=== PATIENT | female | born 1945 | race Caucasian/White ===

== ENCOUNTER → 2017-03-24 | Outpatient (CLI) | payer MEDICARE, OTHER | LOC: EXRD 09:31 | DX: M25.561 Pain in right knee (principal); M17.11 Unilateral primary osteoarthritis, right knee | CPT/HCPCS: 73560 ==

== ENCOUNTER → 2017-08-11 | Outpatient (CLI) | payer MEDICARE | LOC: KOH-I 15:39 | DX: M47.22 Other spondylosis with radiculopathy, cervical region (principal); M50.122 Cervical disc disorder at C5-C6 level with radiculopathy | CPT/HCPCS: 72141 ==

== ENCOUNTER 2020-12-04 14:11 | Inpatient (IN) | payer MEDICARE, OTHER ==
[~2020-12-04] VITALS: Ht 170.2 cm; Wt 81.6 kg
[~2020-12-04 14:11] MED LIST: ANORO ELLIPTA1 EACH INH; BACTROBAN CREAM15 GM TOP; CARDIZEM CD120 MG PO; CATAPRES 0.1MG0.1 MG PO; CRESTOR20 MG PO; CYANOCOBAL1000 MCG/1 INJ; CYMBALTA60 MG PO; DIGOX250 MCG PO; DILTIAZEM 24HR180 M1 PO; ELIQUIS 5 MG TAB5 MG PO; GLUCOPHAGE500 MG PO; HYDROCHLOROTHIA25 MG PO; IBUPROFEN800 MG PO; LASIX40 MG PO; LEVAQUIN750 MG PO; LISINOPRIL5 MG PO; LOPRESSOR 25 MG25 MG PO; LORCET 5-325 M1 EACH PO; MULTAQ 400 MG400 MG PO; NEURONTIN800 MG PO; PHENERGAN 25 MG25 M1 PO; PROTONIX40 MG PO; PROVENTIL HFA 61 INH INH; SPIRIVA RESPIMAT4 GM INH; VOLTAREN100 GM TP; ZESTRIL30 MG PO; ZOFRAN8 MG PO
[2020-12-04 14:45] LABS: HEMOGLOBIN 12.3 gm/dl (12.3-15.3); RED BLOOD COUNT 3.99 M/UL (4.00-5.10); WHITE BLOOD COUNT 13.2 K/UL (4.5-11.0)
[2020-12-04 15:09] LABS: BUN/CREATININE RATIO 19 (0-10)
[2020-12-04] MEDS ORDERED: PHENERGAN 25 MG25 M1 PO (23:56)
[2020-12-04] MEDS ORDERED: JANUVIA 50 MG T50 MG PO (23:58)
[2020-12-05 05:31] LABS: HEMOGLOBIN 10.7 gm/dl (12.3-15.3); WHITE BLOOD COUNT 11.7 K/UL (4.5-11.0)
[2020-12-05 05:53] LABS: RED BLOOD COUNT 3.41 M/UL (4.00-5.10)
[2020-12-06 08:51] LABS: HEMOGLOBIN 12.3 gm/dl (12.3-15.3)
[2020-12-06 08:55] LABS: RED BLOOD COUNT 3.96 M/UL (4.00-5.10)
[2020-12-07 03:04] LABS: HEMOGLOBIN 11.6 gm/dl (12.3-15.3); RED BLOOD COUNT 3.74 M/UL (4.00-5.10); WHITE BLOOD COUNT 9.3 K/UL (4.5-11.0)
[2020-12-07 03:24] LABS: BUN/CREATININE RATIO 17 (0-10)
[2020-12-08 04:04] LABS: HEMOGLOBIN 11.2 gm/dl (12.3-15.3); RED BLOOD COUNT 3.65 M/UL (4.00-5.10); WHITE BLOOD COUNT 7.8 K/UL (4.5-11.0)
[2020-12-08 04:27] LABS: BUN/CREATININE RATIO 17 (0-10)
[2020-12-10 02:21] LABS: HEMOGLOBIN 11.5 gm/dl (12.3-15.3); RED BLOOD COUNT 3.66 M/UL (4.00-5.10); WHITE BLOOD COUNT 8.2 K/UL (4.5-11.0)
[2020-12-10 02:42] LABS: BUN/CREATININE RATIO 11 (0-10)
[2020-12-11] MEDS ORDERED: LOPRESSOR 50 MG50 MG PO (14:01)
[2020-12-11] MEDS ORDERED: GABAPENTIN300 MG PO (14:01)
== END 2020-12-11 16:56 | disposition home or self-care (01) | DRG 853 ==
LOC: ER1 14:11 → M/S 17:14 → CDU 17:14 → PROG CARE 12-05 16:31 → M/S 12-08 16:41
PROVIDERS: Emergency Medicine; Orthopaedic Surgery; ADMIT Internal Medicine Infectious Disease
PROC: 0PSJ04Z Reposition Left Radius with Internal Fixation Device, Open Approach (ICD-10-PCS; principal; 2020-12-10 07:30)
DX: A41.9 Sepsis, unspecified organism (principal); G92 Toxic encephalopathy; S52.502A Unspecified fracture of the lower end of left radius, initial encounter for closed fracture; N30.00 Acute cystitis without hematuria; E87.2 Acidosis; I48.20 Chronic atrial fibrillation, unspecified; N17.9 Acute kidney failure, unspecified; I48.0 Paroxysmal atrial fibrillation; E86.0 Dehydration; I10 Essential (primary) hypertension; E11.9 Type 2 diabetes mellitus without complications; E78.5 Hyperlipidemia, unspecified; Z20.822 Contact with and (suspected) exposure to COVID-19; K74.60 Unspecified cirrhosis of liver; G89.4 Chronic pain syndrome; W19.XXXA Unspecified fall, initial encounter; Z91.81 History of falling; Y93.9 Activity, unspecified; Z79.01 Long term (current) use of anticoagulants; Z79.899 Other long term (current) drug therapy; Z98.84 Bariatric surgery status; Z87.891 Personal history of nicotine dependence; Z90.49 Acquired absence of other specified parts of digestive tract
CPT/HCPCS: 29125; 36415; 70450; 71045; 72125; 73100; 73110; 76000; 80048; 80053; 80307; 81001; 82140; 82550; 82553; 82607; 82962; 83036; 83605; 83735; 83874; 84443; 84484; 85025; 85610; 85730; 87040; 87086; 93005; 96365; 96367; 96375; 96376; 97110-GP-CQ; 97162; 97164; 97166; 97530-GP-CQ; 99285; C1713; J0592; J0690; J0696; J1100; J1160; J1335; J1650; J2001; J2060; J2270; J2405; J2704; J2795; J3010; J3486; J7030; J7050; J7120; U0002

== ENCOUNTER 2021-03-25 15:03 | Inpatient (IN) | payer MEDICARE, OTHER ==
[~2021-03-25] VITALS: Ht 167.6 cm; Wt 114.5 kg
[~2021-03-25 15:03] MED LIST changes: +GABAPENTIN300 MG PO; +JANUVIA 50 MG T50 MG PO; +LOPRESSOR 50 MG50 MG PO
[2021-03-25 16:36] LABS: HEMOGLOBIN 12.3 gm/dl (12.3-15.3); RED BLOOD COUNT 3.82 M/UL (4.00-5.10); WHITE BLOOD COUNT 14.1 K/UL (4.5-11.0)
[2021-03-26 05:36] LABS: HEMOGLOBIN 10.8 gm/dl (12.3-15.3); WHITE BLOOD COUNT 15.9 K/UL (4.5-11.0)
[2021-03-26 05:37] LABS: RED BLOOD COUNT 3.3 M/UL (4.00-5.10)
[2021-03-26 09:46] LABS: ACINETOBACTER BAUMANNII Not Detected (Negative); CANDIDA ALBICANS Not Detected (Negative); CANDIDA KRUSEI Not Detected (Negative); CANDIDA TROPICALIS Not Detected (Negative); ENTEROCOCCUS Not Detected (Negative); ESCHERICHIA COLI Not Detected (Negative); HAEMOPHILUS INFLUENZAE Not Detected (Negative); KLEBSIELLA OXYTOCA Not Detected (Negative); KLEBSIELLA PNEUMONIAE Not Detected (Negative); KPC-CARBAPENEM-RESISTANCE GENE Not Detected (Negative); PROTEUS Not Detected (Negative); PSEUDOMONAS AERUGINOSA Not Detected (Negative); SERRATIA MARCESANS Not Detected (Negative); STAPHYLOCOCCUS AUREUS Not Detected (Negative); STREP AGALACTIAE (GROUP B) Not Detected (Negative); STREP PYOGENES (GROUP A) Not Detected (Negative); vanA/B (VANCOMYCIN RESIST GENE Not Detected (Negative)
[2021-03-26 11:02] LABS: STAPHYLOCOCCUS DETECTED (Negative); STREPTOCOCCUS DETECTED (Negative); mecA (METHICILLIN RESIST GENE DETECTED (Negative)
[2021-03-27 05:30] LABS: HEMOGLOBIN 9.9 gm/dl (12.3-15.3); RED BLOOD COUNT 3.1 M/UL (4.00-5.10)
[2021-03-27 05:37] LABS: WHITE BLOOD COUNT 9.3 K/UL (4.5-11.0)
[2021-03-28 02:27] LABS: HEMOGLOBIN 10.2 gm/dl (12.3-15.3); RED BLOOD COUNT 3.09 M/UL (4.00-5.10); WHITE BLOOD COUNT 11.5 K/UL (4.5-11.0)
[2021-03-29 05:10] LABS: HEMOGLOBIN 10.7 gm/dl (12.3-15.3); RED BLOOD COUNT 3.27 M/UL (4.00-5.10)
[2021-03-29 05:11] LABS: WHITE BLOOD COUNT 14.7 K/UL (4.5-11.0)
[2021-03-29 05:55] LABS: BUN/CREATININE RATIO 20 (0-10)
[2021-03-30 04:56] LABS: HEMOGLOBIN 10.6 gm/dl (12.3-15.3); RED BLOOD COUNT 3.21 M/UL (4.00-5.10); WHITE BLOOD COUNT 11.6 K/UL (4.5-11.0)
[2021-03-30 05:14] LABS: BUN/CREATININE RATIO 22 (0-10)
[2021-03-31 04:40] LABS: HEMOGLOBIN 9.7 gm/dl (12.3-15.3); RED BLOOD COUNT 2.93 M/UL (4.00-5.10); WHITE BLOOD COUNT 9.8 K/UL (4.5-11.0)
[2021-03-31 05:04] LABS: BUN/CREATININE RATIO 24 (0-10)
[2021-04-01 05:11] LABS: RED BLOOD COUNT 2.78 M/UL (4.00-5.10); WHITE BLOOD COUNT 11.5 K/UL (4.5-11.0)
[2021-04-01 05:40] LABS: BUN/CREATININE RATIO 29 (0-10)
[2021-04-02 07:20] LABS: HEMOGLOBIN 9.2 gm/dl (12.3-15.3); RED BLOOD COUNT 2.81 M/UL (4.00-5.10); WHITE BLOOD COUNT 13.1 K/UL (4.5-11.0)
[2021-04-02 07:38] LABS: BUN/CREATININE RATIO 32 (0-10)
[2021-04-03 05:47] LABS: HEMOGLOBIN 7.1 gm/dl (12.3-15.3); RED BLOOD COUNT 2.09 M/UL (4.00-5.10)
[2021-04-03 05:53] LABS: BUN/CREATININE RATIO 31 (0-10)
[2021-04-03 15:59] LABS: HEMOGLOBIN 8.4 gm/dl (12.3-15.3)
[2021-04-04 02:42] LABS: HEMOGLOBIN 8.2 gm/dl (12.3-15.3); WHITE BLOOD COUNT 10.2 K/UL (4.5-11.0)
[2021-04-04 02:46] LABS: RED BLOOD COUNT 2.46 M/UL (4.00-5.10)
[2021-04-04 03:08] LABS: BUN/CREATININE RATIO 25 (0-10)
[2021-04-05 03:00] LABS: HEMOGLOBIN 7.6 gm/dl (12.3-15.3); RED BLOOD COUNT 2.36 M/UL (4.00-5.10)
[2021-04-05 03:03] LABS: WHITE BLOOD COUNT 15.8 K/UL (4.5-11.0)
[2021-04-05 03:11] LABS: BUN/CREATININE RATIO 21 (0-10)
[2021-04-06 03:08] LABS: HEMOGLOBIN 8.9 gm/dl (12.3-15.3); RED BLOOD COUNT 2.59 M/UL (4.00-5.10); WHITE BLOOD COUNT 18.5 K/UL (4.5-11.0)
[2021-04-06 03:17] LABS: BUN/CREATININE RATIO 20 (0-10)
--- NOTE | 2021-04-06 22:38 | NUR ---
DR. ESTEBAN NOTIFIED THAT PATIENT IS SCREAMING IN PAIN AND THAT THE HAD HER MORPHINE DC TODAY. STATES THAT HE MADE A MISTAKE AND TO ASK THE DOCTOR TO CONTINUE THE MORPHINE BACK. DR. ESTEBAN WAS NOTIFIED THAT AFTER 10MG OF HYDROCODONE THE PATIENT IS STILL SCREAMING IN PAIN. PATIENT STATED THAT THE PAIN IS COMING FROM HER NECK WHERE HER CENTRAL LINE IS. DR. ESTEBAN STATED "THAT IS NO REASON TO GIVE THAT PATIENT MORPHINE. GIVE HER 5MG OF HYDROCODONE."
[2021-04-07 07:32] LABS: HEMOGLOBIN 7.6 gm/dl (12.3-15.3)
[2021-04-07 07:40] LABS: BUN/CREATININE RATIO 21 (0-10)
[2021-04-07 07:59] LABS: RED BLOOD COUNT 2.2 M/UL (4.00-5.10)
[2021-04-07 08:01] LABS: WHITE BLOOD COUNT 6.5 K/UL (4.5-11.0)
[2021-04-08 05:42] LABS: BUN/CREATININE RATIO 21 (0-10)
[2021-04-08 05:44] LABS: HEMOGLOBIN 9.8 gm/dl (12.3-15.3); RED BLOOD COUNT 2.85 M/UL (4.00-5.10); WHITE BLOOD COUNT 10.6 K/UL (4.5-11.0)
[2021-04-10 08:23] LABS: RED BLOOD COUNT 2.64 M/UL (4.00-5.10); WHITE BLOOD COUNT 10.9 K/UL (4.5-11.0)
[2021-04-10 08:45] LABS: BUN/CREATININE RATIO 21 (0-10)
[2021-04-11 02:36] LABS: RED BLOOD COUNT 2.59 M/UL (4.00-5.10); WHITE BLOOD COUNT 10.6 K/UL (4.5-11.0)
[2021-04-11 03:00] LABS: BUN/CREATININE RATIO 21 (0-10)
[2021-04-12 09:00] LABS: HEMOGLOBIN 9.7 gm/dl (12.3-15.3); WHITE BLOOD COUNT 11.6 K/UL (4.5-11.0)
[2021-04-12 09:01] LABS: RED BLOOD COUNT 2.86 M/UL (4.00-5.10)
[2021-04-12 09:17] LABS: BUN/CREATININE RATIO 21 (0-10)
[2021-04-13 04:11] LABS: BUN/CREATININE RATIO 23 (0-10)
--- NOTE | 2021-04-13 21:50 | NUR ---
AT 2100 I SPOKE TO FAMILY REGARDING POSSIBLE DECLINE. GAVE UPDATES TO FAMILY ABOUT EDEMA/WEEPING AND INCREASED LETHARGY. SPOKE TO FAMILY ABOUT THE PATIENT NOT OPENING EYES TO HER NAME OR STIMULI. THE PATIENT WILL RESPOND TO PAIN. ALSO SPOKE ABOUT HOW HER BLOOD PRESSURE IS REMAINING MANAGEABLE WITH LEVOPHED BUT WE ARE HAVING TO TITRATE THE DRIP AND I EXPLAINED WHAT THAT MEANT. I SPOKE TO DR. BECKETT REGARDING PATIENT AND HE WILL COME SEE THE PATIENT AND SPEAK TO FAMILY THEY REQUESTED.
[2021-04-13 22:36] LABS: HEMOGLOBIN 9.8 gm/dl (12.3-15.3); RED BLOOD COUNT 2.85 M/UL (4.00-5.10); WHITE BLOOD COUNT 9.7 K/UL (4.5-11.0)
--- NOTE | 2021-04-14 03:26 | NUR ---
AROUND 0245 DR. BECKETT CAME TO FLOOR TO GIVE VERBAL ORDERS. AFTER WAS AWARE OF LABS, HE GAVE ORDERS TO GIVE 2L OVER 4 HOURS. I CLARIFIED WITH MD DUE TO BNP AND EDEMA. MD STATED THAT SHE DID NOT HAVE FLUID IN THE LUNGS ACCORDING TO THE X-RAY AND EXPLAINED PROCESS. I ALSO CONTACTED [facility] REGARDING THE ORDER. MD ONCE AGAIN CLARIFIED THE ORDER AND WANTS TO GIVE THE 2L OVER 4 HOURS.
[2021-04-14 03:30] LABS: HEMOGLOBIN 8.5 gm/dl (12.3-15.3); WHITE BLOOD COUNT 8.4 K/UL (4.5-11.0)
[2021-04-14 03:32] LABS: RED BLOOD COUNT 2.5 M/UL (4.00-5.10)
[2021-04-14 03:51] LABS: BUN/CREATININE RATIO 22 (0-10)
--- NOTE | 2021-04-15 04:16 | NUR ---
04/14 2100 PT AT BEDSIDE, UPDATED ON PT STATUS AND POC. ALL QUESTIONS ANSWERED. 04/14 2200 PT RESPONSIVE TO PAINFUL STIMULI ONLY, UNABLE TO GIVE NIGHT TIME PO MEDS. PER MD NOTES FROM 04/13 PT HAS BEEN UNRESPONSIVE. MD GRAY AWARE OF PT CURRENT RESPONSIVENESS AND INABILITY TO GIVE PO MEDS.
[2021-04-15 11:44] LABS: HEMOGLOBIN 8.6 gm/dl (12.3-15.3); RED BLOOD COUNT 2.53 M/UL (4.00-5.10); WHITE BLOOD COUNT 8.8 K/UL (4.5-11.0)
[2021-04-16 02:18] LABS: HEMOGLOBIN 8.2 gm/dl (12.3-15.3); RED BLOOD COUNT 2.35 M/UL (4.00-5.10)
[2021-04-16 02:19] LABS: WHITE BLOOD COUNT 5.9 K/UL (4.5-11.0)
--- NOTE | 2021-04-17 01:44 | NUR ---
0115 PT BEGAN VOMITING TUBE FEED. TUBE FEEDS STOPPED. OGT HOOKED TO SUCTION, UNABLE TO SUCTION FROM OGT. ATTEMPTED TO FLUSH AND WITHDRAW FROM OGT. REPLACED OGT AND ORDERED KUB TO CONFIRM PLACEMENT.
[2021-04-17 05:33] LABS: HEMOGLOBIN 7.2 gm/dl (12.3-15.3); RED BLOOD COUNT 2.12 M/UL (4.00-5.10); WHITE BLOOD COUNT 5.4 K/UL (4.5-11.0)
== END 2021-04-17 22:31 | disposition expired | DRG 871 ==
LOC: ER1 15:03 → CCU 18:13 → CDU 18:13 → PROG CARE 18:13 → CCU 20:00 → PROG CARE 04-03 15:23 → CCU 04-14 12:00
PROVIDERS: Family Medicine; Internal Medicine; Internal Medicine Infectious Disease; ADMIT Internal Medicine
PROC: 3E033XZ Introduction of Vasopressor into Peripheral Vein, Percutaneous Approach (ICD-10-PCS; 2021-03-25)
PROC: B24BZZ4 Ultrasonography of Heart with Aorta, Transesophageal (ICD-10-PCS; 2021-04-14)
PROC: 0BH17EZ Insertion of Endotracheal Airway into Trachea, Via Natural or Artificial Opening (ICD-10-PCS; 2021-04-15)
PROC: 5A1945Z Respiratory Ventilation, 24-96 Consecutive Hours (ICD-10-PCS; 2021-04-15)
PROC: 02HV33Z Insertion of Infusion Device into Superior Vena Cava, Percutaneous Approach (ICD-10-PCS; 2021-04-15)
PROC: B548ZZA Ultrasonography of Superior Vena Cava, Guidance (ICD-10-PCS; 2021-04-15)
PROC: 03HY32Z Insertion of Monitoring Device into Upper Artery, Percutaneous Approach (ICD-10-PCS; 2021-04-15)
PROC: 30233N1 Transfusion of Nonautologous Red Blood Cells into Peripheral Vein, Percutaneous Approach (ICD-10-PCS; principal; 2021-04-17)
DX: A41.9 Sepsis, unspecified organism (principal); R65.21 Severe sepsis with septic shock; G92 Toxic encephalopathy; Z20.822 Contact with and (suspected) exposure to COVID-19; Z51.5 Encounter for palliative care; Z66 Do not resuscitate; N17.0 Acute kidney failure with tubular necrosis; J96.01 Acute respiratory failure with hypoxia; E87.2 Acidosis; I50.32 Chronic diastolic (congestive) heart failure; I48.19 Other persistent atrial fibrillation; E87.1 Hypo-osmolality and hyponatremia; K52.89 Other specified noninfective gastroenteritis and colitis; L89.322 Pressure ulcer of left buttock, stage 2; N30.90 Cystitis, unspecified without hematuria; I27.20 Pulmonary hypertension, unspecified; F41.9 Anxiety disorder, unspecified; E66.9 Obesity, unspecified; K59.09 Other constipation; I11.0 Hypertensive heart disease with heart failure; D50.9 Iron deficiency anemia, unspecified; T50.995A Adverse effect of other drugs, medicaments and biological substances, initial encounter; F17.210 Nicotine dependence, cigarettes, uncomplicated; I08.3 Combined rheumatic disorders of mitral, aortic and tricuspid valves; E86.1 Hypovolemia; E87.6 Hypokalemia; G89.4 Chronic pain syndrome; Z79.01 Long term (current) use of anticoagulants; Z79.4 Long term (current) use of insulin; Z87.81 Personal history of (healed) traumatic fracture; Z98.84 Bariatric surgery status; Z90.49 Acquired absence of other specified parts of digestive tract; Z98.1 Arthrodesis status; Z86.73 Personal history of transient ischemic attack (TIA), and cerebral infarction without residual deficits; Z82.49 Family history of ischemic heart disease and other diseases of the circulatory system; Z83.49 Family history of other endocrine, nutritional and metabolic diseases; Z68.28 Body mass index [BMI] 28.0-28.9, adult
CPT/HCPCS: ECHO; 31500; 36415; 36430; 36600; 70450; 71045; 74018; 80048; 80053; 80162; 80307; 81001; 82140; 82533; 82607; 82728; 82803; 82962; 83540; 83550; 83605; 83735; 83880; 84100; 84132; 84443; 84484; 85014; 85018; 85025; 85027; 85610; 86140; 86850; 86900; 86901; 86920; 87040; 87070; 87077; 87086; 87150; 87205; 87449; 92526; 92610; 93005; 93306; 94002; 94003; 94760; 96374; 97110-GP-CQ; 97163; 97530; 97530-GP-CQ; 99285; A6212; C1751; J0330; J0692; J1160; J1650; J1885; J1940; J2060; J2185; J2250; J2270; J2370; J2405; J2543; J2550; J2704; J3370; J3475; J3480; J7030; J7040; J7050; J7070; P9016; P9045; P9047; Q0177; U0002